=== PATIENT | female | born 2005 | race Caucasian/White ===

== ENCOUNTER 2023-12-24 09:36 | Outpatient (REF) | payer MEDICAID, SELFPAY ==
[2023-12-24 10:52] LABS: MANUAL DIFF FLAG NO
[2023-12-24 11:20] LABS: Basophils Percent Auto 0.3 % (0-2); Eosinophils Absolute Auto 0.4 X10*3/uL (0.0-0.4); Eosinophils Percent Auto 5.4 % (0-4); Hematocrit 38.6 % (37.0-47.0); Hemoglobin 12.1 g/dl (12.0-16.0); Imm Gran Abs Auto 0.02 X10*3/uL (0.00-0.03); Imm Gran Pct Auto 0.3 % (0.0-0.4); Lymphocytes Absolute Auto 1.9 X10*3/uL (1.2-4.9); Lymphocytes Percent Auto 29.8 % (20-40); Mean Corpuscular HGB Conc 31.3 g/dl (31.0-35.0); Mean Corpuscular Hemoglobin 25.6 pg (27.0-33.0); Mean Corpuscular Volume 81.6 fL (80.0-98.0); Monocytes Absolute Auto 0.4 X10*3/uL (0.1-1.2); Monocytes Percent Auto 6.6 % (2-11); Neutrophils Absolute Auto 3.8 x10*3/uL (2.0-8.3); Neutrophils Percent Auto 57.6 % (45-73); Platelet Count 378 X10*3/uL (160-400); Red Blood Count 4.73 X10*6/uL (4.20-5.50); Red Cell Distribution Width 13.2 % (11.0-16.0); White Blood Count 6.5 X10*3/uL (4.8-10.8)
[2023-12-24 11:56] LABS: Alanine Aminotransferase 14 U/L (0-31); Albumin Level 4.6 g/dL (3.5-5.0); Alkaline Phosphatase 131 U/L (39-117); Anion Gap 12 (12-20); Aspartate Amino Transferase 14 U/L (5-31); Bilirubin Total 0.4 mg/dL (0.0-1.0); Blood Urea Nitrogen 12 mg/dL (9-16); Calcium 9.9 mg/dL (8.4-10.2); Carbon Dioxide 25 mmol/L (22-29); Chloride 107 mmol/L (96-108); Estimated Glomerular Filt Rate > 60; Glucose Random 90 mg/dL (60-115); Potassium 3.9 mmol/L (3.3-5.1); Sodium 140 mmol/L (135-145); Total Protein 8.1 g/dL (6.5-8.0)
[2023-12-24 12:01] LABS: HIV AB/AG Nonreactive (Nonreactive); HIV Num 1 0.05 S/CO (0.00-0.99); ~HepC Num1 0.26 S/CO (0.00-0.79); ~Hepatitis C Antibody Nonreactive (Nonreactive)
[2023-12-24 12:24] LABS: CT PCR NOT DETECTED (Not Detect.); NG PCR NOT DETECTED (Not Detect.)
[2023-12-27 11:18] LABS: RPR Rapid Plasma Reagin NON-REACTIVE (NON-REACTIVE)
== END 2023-12-24 09:37 | disposition home or self-care (01) ==
LOC: HO.HHCL 09:36
PROVIDERS: Visit Provider General Practice
DX: E66.3 Overweight (principal); Z11.3 Encounter for screening for infections with a predominantly sexual mode of transmission
CPT/HCPCS: 80053; 85025; 86592; 86803; 87389; 87491; 87591

== ENCOUNTER 2024-12-04 13:08 | Outpatient (REF) | payer MEDICAID, SELFPAY ==
--- OUTSIDE RECORDS SUMMARY | 2024-12-04 13:49 | XMS_ITS | Clinical Summary ---
Author Organization [facility] Address [address] [place] [address] Care Team Providers Care Education Diagnostician Name Role Phone Physician, No Pcp Primary Care Provider Unavaila ble Allergies No known active allergies Social History Tobacco Use Types Packs/Day Years Used Date Smoking Tobacco: Never Assessed Comments Yes Sex and Gender Information Value Date Recorded Sex Assigned at Female 07/14/2024 6:24 PM EST Legal Sex Female 3:13 PM EST Gender Identity Female 07/14/2024 6:24 PM EST Sexual Orientation Straight 07/14/2024 6: 24 PM EST Obstetrics History Para Term AB IAB SAB Ectopic Multiple Livin g Live Births 1 Date Outcome GA Total Labor Labor/2nd/3rd Weight Sex Type Anes PTL Marycarmen A1 A5 Name Clin Current Last Filed Vital Signs Vital Sign Reading Time Taken Comments Blood Pressure 114/67 07/14/2024 9:49 PM EST Pulse 84 07/14/2024 9:49 PM EST Temperature 36.6 C (97.9 F) 07/14/2024 9:49 PM EST Respiratory Rate 18 07/14/2024 9:49 PM EST Oxygen Saturation 100% 07/14/2024 9:49 PM EST Inhaled Oxygen Concentration - - Weight 68 kg (150 lb) 07/14/2024 1:42 PM EST Height 152.4 cm (5') 07/14/2024 1:42 PM EST Body Mass Index 29.29 07/14/2024 1:42 PM EST Plan of Treatment Health Maintenance Due Date Last Done Comments Meningococcal B Vaccine (1 of 2 - Standard) 2019 Annual Well Child Visit (3-21 years old) 04/08/2022 Social Influencers of Health Screening 04/08/2022 COVID-19 Vaccine ( season) 2024 03/11/2021, 02/18/2021 Cervical Cancer Screening: Pap Smear 2024 Depression Screening 05/10/2024 Gonorrhea/Chlamydia Screening 12/23/2024 12/24/2023 Influenza Vaccine (#1) 2025 , 06/07/2018, 08/08/2014, Additional history exists DTaP,Tdap,and Td Vaccines (9 - Td or Tdap) 01/19/2033 01/19/2023, 08/08/2014, 08/08/2014, Additional history exists Hepatitis B Vaccines Completed 2003, 2003, 2003 Pneumococcal Vaccine: Pediatrics (0 to 5 Years) and At-Risk Patients (6 to 49 Years) Completed 09/04/2004, 2003, 2003, Additional history exists HIB Vaccines Completed 06/08/2007, 07/08, 09/04/2004, Additional history exists IPV Vaccines Completed 06/08/2007, 09/08, 2003, Additional history exists Meningococcal ACWY Vaccine Aged Out 08/08/2014 N o longer eligible based on patient's age to complete this topic HPV Vaccines Completed 06/07/2018, 01/2015, 10/08/2014, Additional history exists Hepatitis A Vaccines Completed 06/07/2018, 01/17/20 HIV Screening Completed 12/24/2023 Hepatitis C Screening Completed 12/24/2023 RSV Immunization Patients Under 20 months Aged Out No longer eligible based on patient's age to complete this topic Insurance MEDICAID - [place] Care Teams Education Diagnostician Relationship Specialty Start Date End Date Physician, No Pcp PCP - General 07/14/24
[2024-12-04 16:12] LABS: MANUAL DIFF FLAG NO
[2024-12-04 16:20] LABS: Hematocrit 37.2 % (37.0-47.0); Hemoglobin 11.6 g/dl (12.0-16.0); Imm Gran Abs Auto 0.02 X10*3/uL (0.00-0.03); Imm Gran Pct Auto 0.3 % (0.0-0.4); Lymphocytes Absolute Auto 2.7 X10*3/uL (1.2-4.9); Mean Corpuscular HGB Conc 31.2 g/dl (31.0-35.0); Mean Corpuscular Hemoglobin 25.4 pg (27.0-33.0); Mean Corpuscular Volume 81.4 fL (80.0-98.0); NRBC Abs Auto 0.000 X10*3/uL (0.0-0.012); NRBC Pct Auto 0.0 /100WBC (0.0-0.2); Platelet Count 381 X10*3/uL (160-400); Red Blood Count 4.57 X10*6/uL (4.20-5.50); White Blood Count 7.7 X10*3/uL (4.8-10.8)
[2024-12-04 16:37] LABS: Alanine Aminotransferase 11 U/L (0-31); Albumin Level 4.5 g/dL (3.5-5.0); Alkaline Phosphatase 78 U/L (39-117); Anion Gap 12 (12-20); Aspartate Amino Transferase 17 U/L (5-31); Blood Urea Nitrogen 13 mg/dL (9-16); Calcium 9.3 mg/dL (8.4-10.2); Carbon Dioxide 25 mmol/L (22-29); Chloride 106 mmol/L (96-108); Estimated Glomerular Filt Rate > 60; Potassium 3.8 mmol/L (3.3-5.1); Sodium 139 mmol/L (135-145); Total Protein 7.6 g/dL (6.5-8.0)
[2024-12-05 03:50] LABS: HIV Num 1 0.05 S/CO (0.00-0.99); ~HepC Num1 0.17 S/CO (0.00-0.79); ~Hepatitis C Antibody Nonreactive (Nonreactive)
== END 2024-12-04 13:09 | disposition home or self-care (01) ==
LOC: HO.HHCL 13:08
PROVIDERS: PCP General Practice; Visit Provider General Practice
DX: Z11.4 Encounter for screening for human immunodeficiency virus [HIV] (principal); Z11.3 Encounter for screening for infections with a predominantly sexual mode of transmission; E66.3 Overweight; Z11.59 Encounter for screening for other viral diseases
CPT/HCPCS: 36415; 80053; 84702; 85025; 86592; 86803; 87389

== ENCOUNTER 2025-03-19 14:02 | Outpatient (REF) | payer MEDICAID, SELFPAY ==
--- OUTSIDE RECORDS SUMMARY | 2025-03-19 13:30 | XMS_ITS | Encounter Summary ---
Author Organization [employer] Address [address] [address] [place] [address] Care Team Providers Care Clock Repair Technician Name Role Phone Yulisa Howard MD Primary Care Provider [phone] Encounter Details Date Type Department Care Team (Late st Contact Info) Description 03/19/2025 1:30 PM EST Office Visit [facility] MED[facility]INE [address] [place], [place] [phone] Cehlle Garg MD [address] [place] [address] Angioedema, subsequent encounter (Primary Dx); Amenorrhea Social History Tobacco Use Types Packs/Day Years Used Date Smoking Tobacco: Never Passive Smoke Exposure: Never Smokeless Tobacco: Never Alcohol Use Standard Drinks/Week Comments Never 0 (1 standard drink = 0.6 oz pur e alcohol) Alcohol Answer Date Recorded Frequency of Alcohol Consumption Not on file 12/24/2023 Average Number of Drinks Not on file 024 Frequency of Binge Drinking Not on file 12/08 Score 0 12/24/2023 Depression Answer Date Recorded Patient Health Questionnaire-9 Score 13 12/24/2023 Patient Health Questionnaire-9 Score 13 12/24/2023 Last PHQ-9: Questionnaire Data Not on file 0 12/24/2023 Housing Stability Answer Date Recorded What is your housing situation today? I have nhung woody 12/24/[address] you li ve. Do you have problems with any of the following? None of the above 12/24/2023 Food Insecurity Answer Date Recorded Within the past 12 months, y ou worried that your food would run out before you got money to buy more: Never True 12/10/2023 Within the past 12 months,th e food you bought just didn't last and you didn't have enough money to get more: Never True 06/2023 Transportation Answer Date Recorded In the past 12 months, has l ack of transportation kept you from medical appts, meetings, work or from getting things needed for daily living? Yes, it has kept me from medical appointments or getting medications. 12/24/2023 Utilities Answer Date Recorded In the past 12 months, has t he electric, gas, oil or water company threatened to shut off services in your home? No 12/10/2023 Depression Answer Date Recorded Patient Health Questionnaire-2 Score 2 12/24/2023 Internet Access Answer Date Recorded Internet Access Q1 Yes 01/10/2024 Internet Access Q2 Not on file 01/10/2024 Comments Unknown Sex and Gender Information Value Date Recorded Sex Assigned at Female 03/09/2022 10:30 AM EDT Legal Sex Female 10:30 AM EDT Gender Identity Female 03/09/2022 10:30 AM EDT Sexual Orientation Straight 03/09/2022 10 :30 AM EDT documented as of this encounter Last Filed Vital Signs Vital Sign Reading Time Taken Comments Blood Pressure 100/60 03/19/2025 1:32 PM EST Pulse 72 03/19/2025 1:32 PM EST Temperature 36.3 C (97.4 F) 03/19/2025 1:32 PM EST Respiratory Rate 22 03/19/2025 1:32 PM EST Oxygen Saturation 99% 03/19/2025 1:32 PM EST Inhaled Oxygen Concentration - - Weight 75 kg (165 lb 6.4 oz) 03/19/2025 1:32 PM EST Height 152.4 cm (5') 03/19/2025 1:32 PM EST Body Mass Index 32.3 03/19/2025 1:32 PM EST documented in this encounter Plan of Treatment Upcoming Encounters Date Type Department Care Team (Late st Contact Info) Description 04/03/2025 2:30 PM EST Office Visit [facility] OPTOM[facility] [address] [place] [address] Apurva Monroe, [place] [address] [place] [address] 05/22/2025 10:30 AM EST Office Visit [facility] [address], [place] [phone] Yulisa Howard MD [address] [place] [address] Scheduled Orders Name Type Priority Associated Diagnoses Orde r Schedule CBC auto differential Lab Routine Angioedema, subsequent encounter Expected: 03/19/2025 (Approximate), Expires: 03/19/2026 TSH with Reflex to Free T4 Lab Routine Angioedema, subsequent encounter Expected: 03/19/2025 (Approximate), Expires: 03/19/2026 Basic Metabolic Panel Lab Routine Angioedema, subsequent encounter Expected: 03/19/2025 (Approximate), Expires: 03/19/2026 Immunoglobulin E Lab Routine Angioedema, subsequent encounter Expected: 03/19/2025 (Approximate), Expires: 03/19/2026 Complement Components C3 + C4 Lab Routine Angioedema, subsequent encounter Expected: 03/19/2025 (Approximate), Expires: 03/19/2026 C1q Antibody (IgG) Lab Routine Angioedema, subsequent encounter Expected: 03/19/2025, Expires: 03/19/2026 Hemoglobin A1c Lab Routine Angioedema, subsequent encounter Expected: 03/19/2025 (Approximate), Expires: 03/19/2026 hCG, Total, Quantitative Lab Routine Amenorrhea Expected: 03/19/2025 (Approximate), Expires: 03/19/2026 documented as of this encounter Procedures Procedure Name Priority Date/Time Associated Diagnosis Comments CBC WITH AUTO DIFFERENTIAL Routine 03/19/2025 2:06 PM EST Angioedema, subsequent encounter documented in this encounter Results * (ABNORMAL) CBC auto differential (03/19/2025 2:06 PM EST) White Blood Count 7.3 4.8 - 10.8 X10*3/uL [facility] Red Blood Count 4.72 4.20 - 5.50 X10*6/uL [facility] Hemoglobin 12.2 12.0 - 16.0 g/dl [facility] Hematocrit 39.6 37.0 - 47.0 % [facility] Mean Corpuscular Volume 83.9 80.0 - 98.0 fL [facility] Mean Corpuscular Hemoglobin 25.8(L) 27.0 - 33.0 pg [facility] Mean Corpuscular HGB Conc 30.8(L) 31.0 - 35.0 g/dl [facility] Red Cell Distribution Width 13.6 11.0 - 16.0 % [facility] Platelet Count 402(H) 160 - 400 X10*3/uL [facility] Mean Platelet Volume 10.2 9.4 - 12.3 fL [facility] Neutrophils Percent Auto 48.1 45 - 73 % [facility] Imm Gran Pct Auto 0.3 0.0 - 0.4 % [facility] Lymphocytes Percent Auto 38.9 20 - 40 % [facility] Monocytes Percent Auto 6.6 2 - 11 % [facility] Eosinophils Percent Auto 5.7(H) 0 - 4 % [facility] Basophils Percent Auto 0.4 0 - 2 % [facility] NRBC Pct Auto 0.0 0.0 - 0.2 /100WBC [facility] Neutrophils Absolute Auto 3.5 2.0 - 8.3 x10*3/uL [facility] Imm Gran Abs Auto 0.02 0.00 - 0.03 X10*3/uL [facility] Lymphocytes Absolute Auto 2.9 1.2 - 4.9 X10*3/uL [facility] Monocytes Absolute Auto 0.5 0.1 - 1.2 X10*3/uL [facility] Eosinophils Absolute Auto 0.4 0.0 - 0.4 X10*3/uL [facility] Basophils Absolute Auto 0.0 0.0 - 0.2 X10*3/uL [facility] NRBC Abs Auto 0.000 0.0 - 0.012 X10*3/uL [facility] Blood Venous blood specimen / Unknown 03/19/2025 2:06 PM EST 03/19/2025 3:54 PM EST us Chelle Garg MD LAB BLOOD ORDERABLES Fin al Result [facility] [address] [place] [address] [phone] documented in this encounter Visit Diagnoses Diagnosis Angioedema, subsequent encounter- Primary Amenorrhea Absence of menstruation documented in this encounter Additional Health Concerns Assessment Noted Time PHQ-9 Depression Total Score: 13 024 9:09 AM EDT documented as of this encounter Care Teams Clock Repair Technician Relationship Specialty Start Date End Date Yulisa Howard MD [address] [place] [address] PCP - General Family Medicine 12/24/23 documented as of this encounter
[2025-03-19 15:59] LABS: MANUAL DIFF FLAG NO
[2025-03-19 16:08] LABS: Hematocrit 39.6 % (37.0-47.0); Hemoglobin 12.2 g/dl (12.0-16.0); Imm Gran Abs Auto 0.02 X10*3/uL (0.00-0.03); Imm Gran Pct Auto 0.3 % (0.0-0.4); Lymphocytes Absolute Auto 2.9 X10*3/uL (1.2-4.9); Mean Corpuscular HGB Conc 30.8 g/dl (31.0-35.0); Mean Corpuscular Hemoglobin 25.8 pg (27.0-33.0); Mean Corpuscular Volume 83.9 fL (80.0-98.0); NRBC Abs Auto 0.000 X10*3/uL (0.0-0.012); NRBC Pct Auto 0.0 /100WBC (0.0-0.2); Platelet Count 402 X10*3/uL (160-400); Red Blood Count 4.72 X10*6/uL (4.20-5.50); White Blood Count 7.3 X10*3/uL (4.8-10.8)
--- OUTSIDE RECORDS SUMMARY | 2025-03-19 16:24 | XMS_ITS | Encounter Summary ---
Author Organization [employer] Address [address] [place] [address] Care Team Providers Care Finishing Supervisor Plastic Sheets Name Role Phone Yulisa Howard MD Primary Care Provider [phone] Reason for Visit * Reason Onset Date Comments Error (VOID this visit) 03/19/2025 Encounter Details Date Type Department Care Team ([facility] Contact Info) Description 03/19/2025 Telephone [facility]INE [address] [place] [address] Yulisa Howard MD [address] [place] [address] Error (VOID this visit) Social History Tobacco Use Types Packs/Day Years [...] AM EDT documented as of this encounter Plan of Treatment Upcoming Encounters Date Type Department Care Team (Late st Contact Info) Description 04/03/2025 2:30 PM EST Office Visit [facility] OPTOMETRY [address] [place] [address] Mirellanevaeh Apurva, OD [address] [place] [address] 05/22/2025 10:30 AM EST Office Visit [facility] MED[facility] [address] [place] [address] Yulisa Howard MD [address] [place] [address] documented as of this encounter Visit Diagnoses Not on filedocumented in this encounter Additional Health Concerns Assessment Noted Time PHQ-9 Depression Total Score: 13 024 9:09 AM EDT documented as of this encounter Care Teams Finishing Supervisor Plastic Sheets Relationship Specialty Start Date End Date Yulisa Howard MD [address] [place] [address] PCP - General Family Medicine 12/24/23 documented as of this encounter
--- OUTSIDE RECORDS SUMMARY | 2025-03-19 16:24 | XMS_ITS | Encounter Summary ---
Author Organization [employer] Address [address] [place] [address] Care Team Providers Care Tool Carrier Name Role Phone Yulisa Howard MD Primary Care Provider [phone] Reason for Visit * Reason Onset Date Comments New Patient Appt 11/12/2022 Encounter Details Date Type Department Care Team ([facility] st Contact Info) Description 11/12/2022 Telephone [facility] MED[facility]INE [address] [place], [place] [phone] Seymour Acosta MD [address] [place], [place] [phone] New Patient Appt Social History Tobacco Use Types Packs/Day Years Used Date Smoking Tobacco: Never Passive Smoke Exposure: Never Smokeless Tobacco: Never Comments Unknown Sex and Gender Information Value Date Recorded Sex Assigned at Female 03/09/2022 10:30 AM EDT Legal Sex Female 10:30 AM EDT Gender Identity Female 03/09/2022 10:30 AM EDT Sexual Orientation Straight 03/09/2022 10 :30 AM EDT documented as of this encounter Miscellaneous Notes * Telephone Encounter - Shantal Valdez - 11/12/2022 11:43 AM EDT Tc to , to offer PROJECT MANAGER/TEAM COACH Appt, pt states is not interested at the time for Director Account Management with Facility. Advised if change of mind to please give facility a call at [phone] documented in this encounter Plan of Treatment Upcoming Encounters Date Type Department Care Team (Late st Contact Info) Description 04/03/2025 2:30 PM EST Office Visit [facility] OPTOMETRY [address] [place], [place] [phone] Apurva Monroe, OD [address] [place] [address] 05/22/2025 10:30 AM EST Office Visit [facility] [address] [place] [address] Yulisa Howard MD [address] [place] [address] documented as of this encounter Visit Diagnoses Not on filedocumented in this encounter Care Teams Tool Carrier Relationship Specialty Start Date End Date Yulisa Howard MD [address] [place], [place] [phone] PCP - General Family Medicine 12/24/23 documented as of this encounter
--- OUTSIDE RECORDS SUMMARY | 2025-03-19 16:24 | XMS_ITS | Clinical Summary ---
Author Organization [employer] Address [address] [place] [address] Care Team Providers Care Sales Operations Associate Name Role Phone Yulisa Howard MD Primary Care Provider [phone] Allergies No known active allergies Medications olopatadine (Pataday) 0.2 % ophthalmic solutionIndication s:Other chronic allergic conjunctivitis of both eyes Administer 1 drop into both eyes Once per day. 2.5 mL 5 4 Active cetirizine (ZyrTEC) 10 MG tablet Take 1 tablet (10 mg) by mouth Once per day. 30 tablet 2 5 026 Active Hospital, Clinic, or Other Facility Administered Medication Ordered Dose Route Frequency Start Date End Date Status lidocaine (Xylocaine) 2 % injection 40 mgIndications:Encounter for Nexplanon removal 40 mg IJ Once 02/08/2024 Active Active Problems Problem Noted Date Diagnosed Date Angio-edema 03/19/2025 Amenorrhea 03/19/2025 Encounter for Nexplanon removal 02/08/2024 Assessment & Plan (02/08/2024 9:56 AM EDT): See procedure note Pt desires fertility and second child, her oldest is 9 months old currently Counseled about PNV, healthy lifestyle Acute gingival inflammation 02/02/2024 Gingival bleeding 02/02/2024 Missing teeth, acquired 02/02/2024 Non-Portuguese speaking patient 12/24/2023 Chronic bilateral low back pain without sciatica 12/24/2023 Dental calculus 03/18/2023 Encounters Date Type Department Care Team Description 03/19/2025 1:30 PM EST Office Visit [facility] [address], [place] [phone] Chelle Garg MD Angioedema, subsequent encounter (Primary Dx); Amenorrhea 03/19/2025 Travel 03/19/[address] [facility] [address], [place] [phone] Yulisa Howard MD Nurse Triage 03/19/[address] [facility] [address], [place] [phone] Yulisa Howard MD Error (VOID this visit) 03/12/[address] [facility] [address], [place] [phone] Yulisa Howard MD Telephone Call from Last 3 Months Immunizations Immunization Administration Dates Next Due DTaP 06/08/2007, 5,2003,07/22,2003 HPV 9-Valent 06/07/2018,10/08/2014,08/08/2014 HPV, Quadrivalent 01/16/2015,08/08/2014 Hep A, Unspecified 01/16/2015 Hep A, ped/adol, 2 dose 06/07/2018,01/16/2015 Hep B, Adolescent or Pediatric 2003,2003,2003 HiB, unspecified 2003 Hib (PRP-T) 06/08/2007, 7,09/04/2004,05/24 IPV 06/08/2007, 4,2003,05/24 Influenza injectable quadriv alent preservative free 06/07/2018 Influenza, IIV3, injectable 03/03/2023, 5,02/28/2013 Influenza, injectable, quadr ivalent, preservative free, pediatric 08/08/2014,02/28/2013 MMR 06/08/2007,05/01/2004 Meningococcal C Conjugate 08/08/2014 Meningococcal MCV4P ACYW-135 08/08/2014 Pneumococcal Conjugate PCV 13 09/04/2004 ,2003,2003,05/24 Td (adult), unspecified 08/08/2014 Tdap 01/19/2023,08/08/2014 Varicella 03/07/2008,09/04/2004 Social History Tobacco Use Types Packs/Day Years Used Date Smoking Tobacco: Never Passive Smoke Exposure: Never Smokeless Tobacco: Never Tobacco Cessation:Counseling Given: Not Answered Alcohol Use Standard Drinks/Week Comments Never 0 [...] Orientation Straight 03/09/2022 10 :30 AM EDT Last Filed Vital Signs Vital Sign Reading [...] Mass Index 32.3 03/19/2025 1:32 PM EST Plan of Treatment Upcoming Encounters Date Type Department Care Team (Late st Contact Info) Description 04/03/2025 2:30 PM EST Office Visit [facility] OPTOMETRY [address] [place] [address] Apurva Monroe, OD [address] [place] [address] 05/22/2025 10:30 AM EST Office Visit [facility] MEDICINE [address] [place] [address] Yulisa Howard MD [address] [place] [address] Health Maintenance Due Date Last Done Comments Disability Screening 2003 Alcohol/Substance Use Screening 2015 Family Planning (PISQ) 2018 Meningococcal B Vaccine (1 of 2 - Standard) 2019 Pap Smear 2024 Depression Monitoring 06/25/2024 12/24/2023, 024 Dental Oral Exam 08/02/2024 02/02/2024, 01/2023, 11/25/2020, Additional history exists Dental X-Ray: Full Mouth 08/20/2024 08/19/2021, 11/07 Chlamydia and Gonorrhea Screening 12/23/2024 12/24/2023 SDOH Screening 12/23/2024 12/24/2023 COVID-19 Vaccine ( season) 2025 03/11/2021, 02/18/2021 Influenza Vaccine (#1) 2025 , 06/07/2018, 08/08/2014, Additional history exists Dental X-Ray: Bitewings 03/02/2025 03/01/20 24, 02/02/2024, 11/25/2020, Additional history exists Dental Prophylaxis 06/02/2025 11/29/2024, 0 05/25/2024, 02/02/2024, Additional history exists Tobacco Screening 11/29/2025 11/29/2024 DTaP/Tdap/Td Vaccines (8 - Td or Tdap) 01/19/2033 01/19/2023, 08/08/2014, 08/08/2014, Additional history exists Zoster Vaccines (1 of 2) 2053 RSV Patients and Patients Aged 60 years or older (1 - 1-dose 75+ series) 2078 Hepatitis B Vaccines Completed 2003, 2003, 2003 Pneumococcal Vaccine: Pediatrics (0 to 5 Years) and At-Risk Patients (6 to 49) Years Completed 09/04/2004, 2003, 2003, Additional history exists HIB Vaccines Completed 06/08/2007, 07/08, 09/04/2004, Additional history exists IPV Vaccines Completed 06/08/2007, 09/08, 2003, Additional history exists Meningococcal Vaccine Aged Out 08/08/2014 No nick soham eligible based on patient's age to complete this topic HPV Vaccines Completed 06/07/2018, 01/2015, 10/08/2014, Additional history exists Hepatitis A Vaccines Completed 06/07/2018, 01/16/2015, 01/16/2015 HIV Screening Completed 12/04/2024, 12/24/2023 Hepatitis C Screening Completed 12/04/2024, 024 RSV under 20 months Aged Out No longe r eligible based on patient's age to complete this topic Rotavirus Vaccines Aged Out No longer eligible based on patient's age to complete this topic Procedures Procedure Name Priority Date/Time Associated Diagnosis Comments CBC WITH AUTO DIFFERENTIAL Routine 03/19/2025 2:06 PM EST Angioedema, subsequent encounter HEPATITIS C AB W/REFL TO HCV RNA, QN, PCR Routine 12/04/2024 1:12 PM EDT HIV 1/2 ANTIGEN/ANTIBODY, FOURTH GENERATION W/RFL Routine 12/04/2024 1:12 PM EDT PROPHYLAXIS - ADULT Routine 11/29/2024 1 0:00 AM EDT BITEWING - SINGLE RADIOGRAPHIC IMAGE Routine 03/01/2024 1:00 PM EDT PERIODIC ORAL EVALUATION - ESTABLISHED PATIENT Routine 02/02/2024 8:00 AM EDT CHLAMYDIA/N. GONORRHOEAE RNA, TMA, UROGENITAL Routine 12/24/2023 9:54 AM EDT Routine screening for STI (sexually transmitted infection) PANORAMIC RADIOGRAPHIC IMAGE Routine 11/22/2015 12:00 AM EDT from Last 3 Months or Most Recently Relevant to Health Maintenance Results * (ABNORMAL) CBC auto differential (03/19/2025 2:06 PM EST) White Blood Count 7.3 4.8 - 10.8 X10*3/uL [facility] Red Blood Count 4.72 4.20 - 5.50 X10*6/uL [facility] Hemoglobin 12.2 12.0 - 16.0 g/dl [facility] Hematocrit 39.6 37.0 - 47.0 % [facility] Mean Corpuscular Volume 83.9 80.0 - 98.0 fL [facility] Mean Corpuscular Hemoglobin 25.8(L) 27.0 - 33.0 pg [facility] Mean Corpuscular HGB Conc 30.8(L) 31.0 - 35.0 g/dl [facility] Red Cell Distribution Width 13.6 11.0 - 16.0 % [facility] Platelet Count 402(H) 160 - 400 X10*3/uL [facility] Mean Platelet Volume 10.2 9.4 - 12.3 fL [facility] Neutrophils Percent Auto 48.1 45 - 73 % [facility] Imm Gran Pct Auto 0.3 0.0 - 0.4 % [facility] Lymphocytes Percent Auto 38.9 20 - 40 % [facility] Monocytes Percent Auto 6.6 2 - 11 % [facility] Eosinophils Percent Auto 5.7(H) 0 - 4 % [facility] Basophils Percent Auto 0.4 0 - 2 % [facility] NRBC Pct Auto 0.0 0.0 - 0.2 /100WBC [facility] Neutrophils Absolute Auto 3.5 2.0 - 8.3 x10*3/uL [facility] Imm Gran Abs Auto 0.02 0.00 - 0.03 X10*3/uL [facility] Lymphocytes Absolute Auto 2.9 1.2 - 4.9 X10*3/uL [facility] Monocytes Absolute Auto 0.5 0.1 - 1.2 X10*3/uL [facility] Eosinophils Absolute Auto 0.4 0.0 - 0.4 X10*3/uL [facility] Basophils Absolute Auto 0.0 0.0 - 0.2 X10*3/uL [facility] NRBC Abs Auto 0.000 0.0 - 0.012 X10*3/uL [facility] Blood Venous blood specimen / Unknown 03/19/2025 2:06 PM EST 03/19/2025 3:54 PM EST us Chelle Garg MD LAB BLOOD ORDERABLES Fin al Result [facility] [address], [place] [phone] * Hepatitis C Antibody with Reflex to HCV, RNA, Quantitative, Real-Time PCR (12/04/2024 1:12 PM EDT) Hepatitis C Antibody Nonreactive Nonreactive [facility] Comment:Antibodies to HCV no t detected; does not exclude early acuteHCV infection. 12/04/2024 1:12 PM EDT 12/04/2024 4:06 PM EDT Yulisa Howard MD LAB BLOOD ORDERABLES Final Res ult Performing Organization Address [facility] Co de Phone Number [facility] [address] [place] [address] [phone] * HIV-1/2 Antigen and Antibodies, Fourth Generation, with Reflexes (12/04/2024 1:12 PM EDT) Pathologist [facility] HIV AB/AG Nonreactive Nonreactive [facility] Comment:HIV-1 p24 Ag and/or HIV-1/HIV-2 Ab not detected.A test result that is nonreactive does not exclude thepossibility of exposure to or infection with HIV-1 and/orHIV-2. Nonreactive results in this assay for individualswith prior exposure to HIV-1 and/or HIV-2 may be due toantigen and antibody levels that are below the limit ofdetection of this assay.The monEchelleniZyrra HIV Ag/Ab Combo assay result andsupplemental assay results should be interpreted inconjunction with the patient's clinical presentation,history and other laboratory results. If the results areinconsistent with clinical evidence, additional testing issuggested to confirm the result. 12/04/2024 1:12 PM EDT 12/04/2024 4:06 PM EDT Yulisa Howard MD LAB BLOOD ORDERABLES Final Res ult Performing Organization Address [facility] Co de Phone Number [facility] [address] [place] [address] [phone] * Chlamydia/N. Gonorrhoeae RNA, TMA, Urogenitial (12/24/2023 9:54 AM EDT) Pathologist [facility] CT PCR NOT DETECTED Not Detect. [facility] Comment:A not detected test result does not exclude the possibilityof infection because test results can be affected byimproper specimen collection, concurrent antibiotic therapy,or the number of organisms in the specimen which may bebelow the sensitivity of the test. As with many diagnostictests, results from the Xpert CT/NG assay should beinterpreted in conjunction with other laboratory andclinical data available to the clinician.Xpert CT/NG performance has not been evaluated in patientsless than 14 years of age. The assay should not be used forthe evaluationof suspected sexual abuse or for other medico-legalindications. Additional testing is recommended in anycircumstance when false positive or false negative resultscould lead to adverse medical, social or psychologicalconsequences. NG PCR NOT DETECTED Not Detect. [facility] Comment:A not detected test result does not exclude the possibilityof infection because test results can be affected byimproper specimen collection, concurrent antibiotic therapy,or the number of organisms in the specimen which may bebelow the sensitivity of the test. As with many diagnostictests, results from the Xpert CT/NG assay should beinterpreted in conjunction with other laboratory andclinical data available to the clinician.Xpert CT/NG performance has not been evaluated in patientsless than 14 years of age. The assay should not be used forthe evaluationof suspected sexual abuse or for other medico-legalindications. Additional testing is recommended in anycircumstance when false positive or false negative resultscould lead to adverse medical, social or psychologicalconsequences. Urine (Urine, Random) 12/24/2023 9:54 AM EDT 12/24/2023 10:48 AM EDT Narrative [facility] - 12/24/2023 12:24 PM EDT Urine us Yulisa Howard MD LAB MICROBIOLOGY - GENERAL ORD ERABLES Final Result [facility] [address] [place] [phone] [phone] from Last 3 Months or Most Recently Relevant to Health Maintenance Insurance [facility] C3 DENTAL-[facility] MEDICAID STAND ADULT Care Teams Sales Operations Associate Relationship Specialty Start Date End Date Yulisa Howard MD [address] [place] [address] [phone] PCP - General Family Medicine 12/24/23
--- OUTSIDE RECORDS SUMMARY | 2025-03-19 16:24 | XMS_ITS | Encounter Summary ---
Author Organization [employer] Address [address] [place] [address] Care Team Providers Care Land Management Forester Name Role Phone Yulisa Howard MD Primary Care Provider [phone] Reason for Visit * Reason Onset Date Comments Nurse Triage 03/19/2025 Encounter Details Date Type Department Care Team ([facility] st Contact Info) Description 03/19/2025 Telephone [facility] MEDICINE [address] [place], [place] [phone] Yulisa Howard MD [address] [place], [place] [phone] Nurse Triage Social History Tobacco Use Types Packs/Day Years [...] encounter Miscellaneous Notes * Telephone Encounter - Marissa Boles RN - 03/19/2025 11:44 AM EST RN received transfer of patient in regards to below message. Patient reports she is calling becauseshe would like an appt to f/u in regards to her recent ED visit from 03/10/25 at [facility]. Patient was seen for allergic reaction and nausea and was given pepcid and Zofran RX. Patient reports she has p/u both medications and has been taking the pepcid as directed however has not needed to usethe Zofran as she was only nauseous the day she visited the emergency room. Patient reports she is still experiencing allergy s/s (face, arms and legs have redness and continue to be itchy). Patient denies any recent changes to perfumes, detergents or lotions. Patient denies any blisters or hives. Patient also reports since being seen at the ED she has experienced intermittent chest pain which occurs when she is sneezing, coughing or with exertion. 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 Patient reports at times she needs to sit down when the chest pain occurs and also has had R arm numbness during the chest pain as well occasionally. Patient denies active chest pain. Patient also reports she has noticed at times she wakes up at night and is shaky but then eats a piece of candy and her s/s resolve. Patient reports she is not diabetic to her knowledge (no diagnosis of dm or pre-dm in chart and no recent A1c). Patient schduled for an appt today at 1:30pm. Patient to f/u PRN. Protocol Used: Chest Pain (Adult) Protocol-Based Disposition: See in Office or Video Visit Today Video visit not offered Positive Triage Questions: * Chest pain(s) lasting a few seconds and lasts > 3 days * Patient wants to be seen * Chest pain(s) lasting a few seconds from coughing * Chest pain(s) lasting a few seconds * All higher-acuity triage questions were negative Care Advice Discussed: * Reassurance and Education - Chest Pains From Coughing * Reasons To Call Back - Chest pain increases in frequency, duration or severity - Chest pain lasts over 5 minutes - Difficulty breathing or unusual sweating occurs - Fever over 100.4 F (38.0 C) - You become worse * Telephone Encounter - Marissa Boles RN - 03/19/2025 11:44 AM EST Good morning I have a pt calling in regards to triage, wondering If anyone is able to attend call. she is north korean speaking. Symptom: Chest Pain - Adult Outcome: Transfer to a nurse or provider NOW! Reason: Hard to wake up documented in this encounter Plan of Treatment Upcoming Encounters Date Type Department Care Team (Late st Contact Info) Description 04/03/2025 2:30 PM EST Office Visit [facility] OPTOMETRY [address] [place], [place] [phone] Apurva Monroe, OD [address] [place], [place] [phone] 05/22/2025 10:30 AM EST Office Visit [facility] MEDICINE [address] [place], [place] [phone] Yulisa Howard MD [address] [place] [address] documented as of this encounter Visit Diagnoses Not on filedocumented in this encounter Additional Health Concerns Assessment Noted Time PHQ-9 Depression Total Score: 13 024 9:09 AM EDT documented as of this encounter Care Teams Land Management Forester Relationship Specialty Start Date End Date Yulisa Howard MD [address], [place] [phone] PCP - General Family Medicine 12/24/23 documented as of this encounter
--- OUTSIDE RECORDS SUMMARY | 2025-03-19 16:24 | XMS_ITS | Clinical Summary ---
Author Organization [facility] Address [address] [place] [address] Care Team Providers Care Elastic Assembler Name Role Phone Physician, No Pcp Primary Care Provider Unavaila ble Allergies No known active allergies Medications famotidine (PEPCID) 40 mg tablet Take 1 tablet (40 mg total) by mouth at bedtime as needed for heartburn for up to 20 days. 20 tablet 5 025 Active famotidine (PEPCID) 40 mg tablet Take 1 tablet (40 mg total) by mouth at bedtime as needed for heartburn for up to 7 days. 7 each 5 025 ondansetron ODT (ZOFRAN-ODT) 4 mg disintegrating tablet Let 1 tablet dissolve under the tongue three times daily as needed for nausea or vomiting. 10 tablet 5 025 Encounters Date Type Department Care Team Description 03/10/2025 6:48 AM EDT - 03/10/2025 9:40 AM EDT Emergency [facility] Emergency [address] [place] [address] Allergic reaction, initial encounter (Primary Dx); Nausea Discharge Disposition: Home or Self Care from Last 3 Months Social History Tobacco Use Types Packs/Day Years Used Date Smoking Tobacco: Never Smokeless Tobacco: Never Tobacco Cessation:Counseling Given: Not Answered Comments Unknown Sex and Gender Information Value [...] Anes PTL Marycarmen A1 A5 Name Clin Last Filed Vital Signs Vital Sign Reading Time Taken Comments Blood Pressure 125/90 03/10/2025 8:02 AM EDT Pulse 87 03/10/2025 8:02 AM EDT Temperature 36.6 C (97.9 F) 03/10/2025 8:02 AM EDT Respiratory Rate 18 03/10/2025 8:02 AM EDT Oxygen Saturation 98% 03/10/2025 8:02 AM EDT Inhaled Oxygen Concentration - - Weight 74.8 kg (165 lb) 03/10/2025 6:02 AM EDT Height 152.4 cm (5') 03/10/2025 6:02 AM EDT Body Mass Index 32.22 03/10/2025 6:02 AM EDT Plan of Treatment Health Maintenance Due Date Last Done Comments Meningococcal B Vaccine (1 of 2 - Standard) 2019 Annual Well Child Visit (3-21 years old) 04/08/2022 Social Influencers of Health Screening 04/08/2022 Cervical Cancer Screening: Pap Smear 2024 Depression Screening 05/10/2024 Gonorrhea/Chlamydia Screening 12/23/2024 12/24/2023 COVID-19 Vaccine ( season) 2025 03/11/2021, 02/18/2021 Influenza Vaccine (#1) 2025 , 06/07/2018, 08/08/2014, Additional history exists DTaP,Tdap,and Td Vaccines (9 - Td or Tdap) 01/19/2033 01/19/2023, 08/08/2014, 08/08/2014, Additional history exists RSV Immunization Adult Patients (1 - 1-dose 75+ series) 2078 Hepatitis B Vaccines Completed 2003, 2003, 2003 Pneumococcal Vaccine: Pediatrics (0 to 5 Years) and At-Risk Patients (6 to 49 Years) Completed 09/04/2004, 2003, 2003, Additional history exists HIB Vaccines Completed 06/08/2007, 07/08, 09/04/2004, Additional history exists IPV Vaccines Completed 06/08/2007, 09/08, 2003, Additional history exists MMR Vaccines Completed 06/08/2007, 05/01/2004 Varicella Vaccines Completed 03/07/2008, 09/04/2004 Meningococcal ACWY Vaccine Aged Out 08/08/2014 N o longer eligible based on patient's age to complete this topic HPV Vaccines Completed 06/07/2018, 01/2015, 10/08/2014, Additional history exists Hepatitis A Vaccines Completed 06/07/2018, 01/17/20 15 HIV Screening Completed 12/04/2024, 12/24/2023 Hepatitis C Screening Completed 12/04/2024, 024 RSV Immunization Patients Under 20 months Aged Out No longer eligible based on patient's age to complete this topic Insurance MEDICAID - [place] Care Teams Elastic Assembler Relationship Specialty Start Date End Date Physician, No Pcp PCP - General 03/10/25
--- OUTSIDE RECORDS SUMMARY | 2025-03-19 16:24 | XMS_ITS | Encounter Summary ---
Author Organization [employer] Address [address] [place] [address] Care Team Providers Care Exchange Floor Manager Name Role Phone Yulisa Howard MD Primary Care Provider [phone] Encounter Details Date Type Department Care Team (Latest Contact Info) Description 03/19/2025 Travel Social History Tobacco Use Types Packs/Day Years [...] Description 04/03/2025 2:30 PM EST Office Visit [facility] OPTOMETRY [address] [place] [address] TarkaApurva, OD [address] [place] [address] 05/22/2025 10:30 AM EST Office Visit [facility] MEDICINE [address] [place] [address] Yulisa Howard MD [address] [place], [place] [phone] documented as of this encounter Visit Diagnoses Not on filedocumented in this encounter Additional Health Concerns Assessment Noted Time PHQ-9 Depression Total Score: 13 024 9:09 AM EDT documented as of this encounter Care Teams Exchange Floor Manager Relationship Specialty Start Date End Date Yulisa Howard MD [address] [place] [phone] PCP - General Family Medicine 12/24/23 documented as of this encounter
== END 2025-03-19 14:03 | disposition home or self-care (01) ==
LOC: HO.HHCL 14:02
PROVIDERS: PCP General Practice; Visit Provider Internal Medicine
DX: T78.3XXD Angioneurotic edema, subsequent encounter (principal); N91.2 Amenorrhea, unspecified; X58.XXXD Exposure to other specified factors, subsequent encounter
CPT/HCPCS: 36415; 84702; 85025